=== PATIENT | female | born 1985 | race Two or more races ===

== ENCOUNTER → 2019-06-20 | Outpatient (CLI) | payer BC ==
[2019-06-20 14:04] VITALS: BP 142/82; PULSE 106; RESP 20; TEMP 97.7
[2019-06-20 14:39] VITALS: BMI 56.5
--- NOTE | 2019-06-20 15:57 | P.BASOAP ---
Subjective Progress Note Date: 06/20/19 Principal diagnosis: Morbid obesity Patient is known to our service from previous lap band placement. Patient's lap band was emptied approximately one year ago because she was having intermittent vomiting. Patient had approximately 2 mL in her band at that time. She thinks she may have been as tight as 4 or 5 mL in the past. Since that time she has had no issues with her band. Never has had any reflux. No nausea or vomiting. She is interested in a small fill at this time. Objective - Vital Signs Vital signs: Vital Signs Temp 97.7 F 06/20/19 13:57 Pulse 106 H 06/20/19 13:57 Resp 20 06/20/19 13:57 BP 142/82 06/20/19 13:57 Pulse Ox Intake & Output 06/19/19 06/20/19 06/20/19 18:59 06:59 18:59 Weight 158.667 kg - Exam Abdomen: Soft, nontender, nondistended Assessment/Plan (1) Morbid obesity Narrative/Plan: Will proceed with LAP-BAND adjustment at this time. 1 mL sterilely added to the band. Patient tolerated liquids. Follow-up one month. Plan: Date: 06/20/19 Initial Weight: 158.667 kg Initial BMI: 56.5 Current Weight: 158.667 kg Current BMI: 56.5 Type of Surgery: Total Volume in Band: 1 Previous Volume: 0 Volume Removed: Volume Added: 1 Band Size:
== END | disposition home or self-care (01) ==
LOC: BARWHC3 13:46
PROVIDERS: ATTEND Surgery
DX: Z46.51 Encounter for fitting and adjustment of gastric lap band (principal); E66.01 Morbid (severe) obesity due to excess calories; Z68.43 Body mass index [BMI] 50.0-59.9, adult
CPT/HCPCS: 99202